=== PATIENT | female | born 1950 | race Caucasian/White ===

== ENCOUNTER → 2016-07-27 | Outpatient (CLI) | payer OTHER ==
[~2016-07-27] MED LIST: ALBU6.7H INH; ASPI1TAB69 PO; BISO10TA2 PO; CART240C4 PO; DILT240C7 PO; OXYC1TAB63 PO; ZIAC106.25 PO; ZYRT10TA12 PO
[2016-07-27 15:26] LABS: AUTOMATED NEUTROPHIL # 6.2 TH/MM3 (1.8-7.7); BASOPHIL # 0.1 TH/MM3 (0-0.2); BASOPHIL % 0.6 % (0.0-2.0); EOSINOPHIL # 0.1 TH/MM3 (0-0.4); HEMO FLAGS DIFF FINAL; LYMPH % 26.6 % (9.0-44.0); LYMPHOCYTE # 2.5 TH/MM3 (1.0-4.8); MEAN CORPUSCULAR HEMOGLOBIN 27.3 PG (27.0-34.0); MEAN CORPUSCULAR HGB CONC 32.9 % (32.0-36.0); NEUT % 65.8 % (16.0-70.0); PLATELET COUNT 276 TH/MM3 (150-450); RED BLOOD COUNT 5.05 MIL/MM3 (4.00-5.30); RED CELL DISTRIBUTION WIDTH 15.2 % (11.6-17.2); WHITE BLOOD COUNT 9.5 TH/MM3 (4.0-11.0)
[2016-07-27 15:32] LABS: BLOOD, URINE TRACE (NEG); COMMENT (UR) CULT NOT INDICATED; CULTURE IF INDICATED CULT NOT INDICATED; GLUCOSE,URINE NEG (NEG); KETONE, URINE NEG (NEG); NITRITE,URINE NEG (NEG); SQUAMOUS EPITHELIAL CELL URINE 3 /hpf (0-5); URINE COLOR YELLOW (YELLW/STRAW)
--- NOTE | 2016-07-27 15:56 | RADRPT ---
EXAM DATE/TIME: 07/27/2016 15:22 [place] COMPARISON: No previous studies available for comparison. INDICATIONS : Evaluate for pneumonia, pnuemothorax and communicable disease. Pre-op for DNC. MEDICAL HISTORY : Hypertension. Asthma. SURGICAL HISTORY : None. ENCOUNTER: Initial ACUITY: 1 day PAIN SCORE: Non-responsive. LOCATION: Bilateral chest FINDINGS: PA and lateral views of the chest demonstrate the lungs to be symmetrically aerated without evidence of mass, infiltrate or effusion. The cardiomediastinal contours are unremarkable. Mild cardiomegaly. Degenerative changes thoracic spine. CONCLUSION: 1. No acute cardiopulmonary disease. 2. Mild cardiomegaly. Yonatan Pereyra MD on July 27, 2016 at 15:54 Board Certified Radiologist. This report was verified electronically.
--- NOTE | 2016-07-28 22:28 | EKG ---
Date Performed: 07/27/2016 Time Performed: 14:46:42 PTAGE: 66 years EKG: Sinus rhythm LOW QRS VOLTAGE IN PRECORDIAL LEADS POSSIBLE RIGHT VENTRICULAR CONDUCTION DELAY Delayed R wave progr ession BORDERLINE ECG Compared to prior tracing no significant change DOCTOR: Kateryna Auguste Interpretating Date/Time 07/28/2016 22:27:32
== END ==
LOC: CPRE 14:17
PROVIDERS: ATTEND Obstetrics & Gynecology
DX: Z01.810 Encounter for preprocedural cardiovascular examination (principal); Z01.811 Encounter for preprocedural respiratory examination; Z01.812 Encounter for preprocedural laboratory examination; D39.0 Neoplasm of uncertain behavior of uterus; R94.31 Abnormal electrocardiogram [ECG] [EKG]
CPT/HCPCS: 36415; 71020; 81001; 85025; 93005

== ENCOUNTER → 2016-07-29 | Day surgery (SDC) | payer OTHER ==
--- NOTE | 2016-07-28 20:48 | MH ---
cc: DELFINA OBREGON DATE OF ADMISSION: 07/29/2016 ADMITTING DIAGNOSIS: 1. Postmenopausal bleeding. 2. Uterine fibroids. 3. Endometrial thickening, possible carcinoma. HISTORY OF PRESENT ILLNESS: The patient is a 66-year-old white female para 2-0-0-2 who returned for her annual visit on 07/15/2016 reporting slight bleeding at the end of April and May of 2016 which was essentially a pink-tinged discharge. No pain. No dysuria. Her Pap smear that day returned with atypical endometrial cells suspicious for adenocarcinoma of the endometrium. HPV was negative. Her pelvic ultrasound from 07/23/16 revealed her uterus measured 7.9 cm and there is a ventral fibroid about 12 mm. The endometrium is thickened at 12 to 14 mm. The ovaries could not be seen. She is now admitted for surgical evaluation. PAST MEDICAL HISTORY / PAST SURGICAL HISTORY: 1. Tonsillectomy and adenoidectomy in childhood. 2. Cholecystectomy. 3. D&C x2 in 2001 that were benign. 4. D&C in April of 2013 showed benign polyps. MEDICATIONS: 1.list. ALLERGIES: NONE. TRANSFUSIONS: None. OB HISTORY: Two vaginal deliveries. SOCIAL HISTORY: She is . A schoolteacher. Alcohol, tobacco and drugs: None. PHYSICAL EXAMINATION: GENERAL: This is a morbidly obese white female. WEIGHT: 279. HEIGHT: 5 feet 2. HEAD, EYES, EARS, NOSE, THROAT: Normal. CHEST: Clear. HEART: Regular rate. BREASTS: Symmetrical. ABDOMEN: Obese. PELVIC EXAM: Vagina is normal. Cervix normal. Uterus normal size and shape anterior. No adnexal masses. PLAN: She is now admitted for hysteroscopy and D&C. While in the office, I explained the procedures, the risks and the complications and she would like to proceed. I also discussed t he need for possible hysterectomy if carcinoma is found at a future time. MD LONNIE Chen/HUMBERTO /7:33 PM /8:[address] [facility] SYSTEMAshly
[~2016-07-29] VITALS: Ht 160 cm; Wt 125.5 kg
[~2016-07-29] MED LIST changes: +ACETAMINOPHEN 1000 MG/100 ML VIAL IV ONE; +ACETAMINOPHEN 1000 MG/100 ML VIAL IV SCH; -CART240C4 PO; +DEXAMETHASONE SOD PHOS 4 MG/ML VIAL ONE; +DO NOT ADM ANY ANTICOAGULANT DRUGS XX PRN; +FAMOTIDINE 20 MG/2 ML VIAL ONE; +INSULIN HUMAN REGULAR 1,000 UNITS/10 ML VIAL SQ PRN; +LACTATED RINGER'S 1000 ML IV SCH; +METOPROLOL TARTRATE 25 MG TAB PO PRN; +MIDAZOLAM HCL 2 MG/2 ML VIAL ONE; +ONDANSETRON HCL 4 MG/2 ML VIAL IV PUSH ONE; +ONDANSETRON HCL 4 MG/2 ML VIAL ONE; +PROPOFOL 200 MG/20 ML AMP IV ONE; +RESP: ALBUTEROL 2.5 MG/3 ML NEB (PRN) ONE; +SODIUM CHLORID 0.9% 500 ML IV SCH; -ZIAC106.25 PO; -ZYRT10TA12 PO; +ceFAZolin 1,000 MG/NS 100 ML IV SCH; +fentaNYL CITRATE 250 MCG/5 ML AMP ONE
[2016-07-29 05:36] VITALS: BP 187/85; PULSE 74; RESP 18; TEMP 98.1; O2SAT 97
[2016-07-29 08:50] VITALS: BP 134/84; PULSE 68; RESP 18; TEMP 97.9; O2SAT 97
--- NOTE | 2016-07-29 08:52 | MP ---
cc: DELFINA OBREGON DATE OF SURGERY 07/29/2016 PREOPERATIVE DIAGNOSES 1. Postmenopausal bleeding. 2. Uterine fibroids. 3. Possible uterine carcinoma. POSTOPERATIVE DIAGNOSES 1. Postmenopausal bleeding. 2. Uterine fibroids. 3. Possible uterine carcinoma. PROCEDURE Hysteroscopy, D&C. ANESTHESIA General ET. SURGEON Delfina Obregon MD HAT MARKER MARCELO [place] ESTIMATED BLOOD LOSS FOR THE PROCEDURE About 30 cc. FLUIDS 0.5 liter of crystalloid. OBJECTIVE FINDINGS Following the induction of adequate general endotracheal anesthesia, the patient was prepped and draped supine on the operating room table in the dorsal lithotomy position in the usual sterile fashion with the bladder being drained via in and out catheterization. The cervix was exposed with hand-held retractors secondary to her size, the anterior lip of the cervix grasped with a single-tooth tenaculum. The cervix and uterus sounded to 8 cm. The cervix was then dilated to a #18 Hanks dilator. The hysteroscope was passed, revealed normal endocervix and a very thickened endometrium. The scope was now withdrawn, the endocervix curetted with a small serrated curet, the endometrium with a small, sharp curet and polyp forceps passed to spanish moss picker loose tissue and debris. The cervical tenaculum site was sutured with 2-0 chromic, all instruments removed. All counts were correct. The patient's legs were taken down from the stirrups. She was awakened and taken to the recovery room in good condition. MD LONNIE Chen/MAU /7:27 AM /8:28 AM MTDAshly
== END | disposition home or self-care (01) ==
LOC: HSDC 05:07
PROVIDERS: ATTEND Obstetrics & Gynecology
DX: D25.9 Leiomyoma of uterus, unspecified (principal); N95.0 Postmenopausal bleeding; R93.8 Abnormal findings on diagnostic imaging of other specified body structures; I10 Essential (primary) hypertension; J45.909 Unspecified asthma, uncomplicated
CPT/HCPCS: 00952; 58558; 88305; 94664; J0131; J0690; J1100; J2250; J2405; J3010; J7120; J7613; 88341

== ENCOUNTER 2016-10-07 05:28 | Observation (INO) | payer OTHER ==
[~2016-10-07] VITALS: Ht 158.8 cm; Wt 124.3 kg
[~2016-10-07 05:28] MED LIST changes: -ACETAMINOPHEN 1000 MG/100 ML VIAL IV ONE; -ACETAMINOPHEN 1000 MG/100 ML VIAL IV SCH; -DEXAMETHASONE SOD PHOS 4 MG/ML VIAL ONE; -DO NOT ADM ANY ANTICOAGULANT DRUGS XX PRN; -FAMOTIDINE 20 MG/2 ML VIAL ONE; -INSULIN HUMAN REGULAR 1,000 UNITS/10 ML VIAL SQ PRN; -LACTATED RINGER'S 1000 ML IV SCH; -METOPROLOL TARTRATE 25 MG TAB PO PRN; -MIDAZOLAM HCL 2 MG/2 ML VIAL ONE; -ONDANSETRON HCL 4 MG/2 ML VIAL IV PUSH ONE; -ONDANSETRON HCL 4 MG/2 ML VIAL ONE; -OXYC1TAB63 PO; -PROPOFOL 200 MG/20 ML AMP IV ONE; -RESP: ALBUTEROL 2.5 MG/3 ML NEB (PRN) ONE; -SODIUM CHLORID 0.9% 500 ML IV SCH; -ceFAZolin 1,000 MG/NS 100 ML IV SCH; -fentaNYL CITRATE 250 MCG/5 ML AMP ONE
[2016-10-07] MEDS ORDERED: METOPROLOL TARTRATE 25 MG TAB PO PRN (06:00)
[2016-10-07] MEDS ORDERED: SODIUM CHLORID 0.9% 500 ML IV PRN (06:00)
[2016-10-07] MEDS ORDERED: CHLORHEXIDINE GLUCONATE 2 % 1 PACK (2 CLOTHS) TOPICAL PRN (06:00)
[2016-10-07] MEDS ORDERED: INSULIN HUMAN REGULAR 1,000 UNITS/10 ML VIAL SQ PRN (06:00)
[2016-10-07] MEDS ORDERED: HEPARIN SODIUM - SQ 10,000 UNITS/ML VIAL SQ SCH (06:00)
[2016-10-07] MEDS ORDERED: POVIDONE IODINE 5% (ANTISEPSIS KIT) 4 APPLICATIONS EACH NARE PRN (06:00)
[2016-10-07] MEDS ORDERED: LACTATED RINGER'S 1000 ML IV PRN (06:00)
[2016-10-07] MEDS ORDERED: ceFAZolin 2 GM PREMIX 50 ML IV SCH (06:00)
[2016-10-07 06:13] VITALS: BP 144/78; PULSE 67; RESP 20; TEMP 97.7; O2SAT 95
[2016-10-07] MEDS ORDERED: MIDAZOLAM HCL 2 MG/2 ML VIAL ONE ×2 (07:09→07:12)
[2016-10-07] MEDS ORDERED: ACETAMINOPHEN 1000 MG/100 ML VIAL IV ONE ×2 (07:09→07:12)
[2016-10-07] MEDS ORDERED: ARTIFICIAL TEARS OPTH OINT 3.5 APPLIC/3.5 GM TUBO ONE (07:09)
[2016-10-07] MEDS ORDERED: FAMOTIDINE 20 MG/2 ML VIAL ONE ×2 (07:10→07:12)
[2016-10-07] MEDS ORDERED: fentaNYL CITRATE 250 MCG/5 ML AMP ONE (07:10)
[2016-10-07] MEDS ORDERED: DEXAMETHASONE SOD PHOS 4 MG/ML VIAL ONE (07:12)
[2016-10-07] MEDS ORDERED: LIDOCAINE 1%/EPINEPHrine 1:100,000 SOLN 30 ML VIAL INFIL ONE (08:46)
[2016-10-07] MEDS ORDERED: METHYLENE BLUE 10 MG/ML VIAL OTHER ONE (10:07)
[2016-10-07] MEDS ORDERED: ceFAZolin INJ 1,000 MG VIAL IV ONE (10:25)
[2016-10-07] MEDS ORDERED: diphenhydrAMINE HCL 25 MG CAP PO PRN (11:15)
[2016-10-07] MEDS ORDERED: ONDANSETRON HCL 4 MG/2 ML VIAL IVP PRN (11:15)
[2016-10-07] MEDS ORDERED: SODIUM CHLORIDE 0.9% FLUSH 10 ML FLUSH IV FLUSH PRN (11:15)
[2016-10-07] MEDS ORDERED: oxyCODONE/ACETAMINOPHEN 5 MG/325 MG TAB PO PRN ×2 (11:15)
[2016-10-07] MEDS ORDERED: LORazepam 0.5 MG TAB PO PRN (11:15)
[2016-10-07] MEDS ORDERED: DO NOT ADM ANY ANTICOAGULANT DRUGS PRN (11:30)
[2016-10-07] MEDS: D5-1/2 NS + KCL 20 MEQ INJ 1,000 ML IV SCH ×2 (11:45→21:19)
[2016-10-07] MEDS: KETOROLAC TROMETHAMINE 30 MG/ML (IVP) VIAL IVP SCH ×3 (11:46→23:33)
[2016-10-07] MEDS: RESP: ALBUTEROL 2.5 MG/3 ML NEB (SCH) NEB ×2 (11:51→21:09)
[2016-10-07] MEDS ORDERED: PROPOFOL 200 MG/20 ML AMP IV ONE (13:57)
[2016-10-07] MEDS ORDERED: NEOSTIGMINE 3 MG/3 ML SYR IV ONE (13:57)
[2016-10-07] MEDS ORDERED: ePHEDrine/NS 25 MG/5 ML SYR IV ONE (13:57)
[2016-10-07] MEDS ORDERED: SODIUM CHLORID 0.9% 500 ML INJ 500 ML IV ONE (13:58)
[2016-10-07] MEDS ORDERED: ONDANSETRON HCL 4 MG/2 ML VIAL IV PUSH ONE (13:58)
[2016-10-07] MEDS ORDERED: LACTATED RINGER'S 1000 ML INJ 2,000 ML IV ONE (13:58)
[2016-10-07 14:00] VITALS: BP 137/73; PULSE 63; RESP 16; TEMP 96.1; O2SAT 97
[2016-10-07 16:00] VITALS: BP 143/72; PULSE 67; RESP 16; TEMP 96.9; O2SAT 98
[2016-10-07 20:42] VITALS: BP 145/63; PULSE 70; RESP 16; TEMP 98.1; O2SAT 97
[2016-10-07] MEDS: SODIUM CHLORIDE 0.9% FLUSH 10 ML FLUSH IV FLUSH SCH (21:00)
[2016-10-08 00:17] VITALS: BP 122/56; PULSE 73; RESP 16; TEMP 96.9; O2SAT 96
[2016-10-08] MEDS: RESP: ALBUTEROL 2.5 MG/3 ML NEB (SCH) NEB ×2 (03:26→09:23)
[2016-10-08 04:34] VITALS: BP 152/67; PULSE 74; RESP 16; TEMP 96.8; O2SAT 98
[2016-10-08] MEDS: KETOROLAC TROMETHAMINE 30 MG/ML (IVP) VIAL IVP SCH (05:43)
[2016-10-08 06:06] LABS: AUTOMATED NEUTROPHIL # 9.1 TH/MM3 (1.8-7.7); BASOPHIL % 0.2 % (0.0-2.0); HEMATOCRIT 37.8 % (35.0-46.0); HEMO FLAGS DIFF FINAL; MEAN CELL VOLUME 84.3 FL (80.0-100.0); MEAN CORPUSCULAR HEMOGLOBIN 28.1 PG (27.0-34.0); MEAN CORPUSCULAR HGB CONC 33.3 % (32.0-36.0); MONO % 5.9 % (0.0-8.0); NEUT % 76.9 % (16.0-70.0); PLATELET COUNT 235 TH/MM3 (150-450); RED BLOOD COUNT 4.48 MIL/MM3 (4.00-5.30); RED CELL DISTRIBUTION WIDTH 15.3 % (11.6-17.2); WHITE BLOOD COUNT 11.8 TH/MM3 (4.0-11.0)
[2016-10-08 06:28] LABS: POTASSIUM 3.5 MEQ/L (3.5-5.1)
[2016-10-08] MEDS: D5-1/2 NS + KCL 20 MEQ INJ 1,000 ML IV SCH (07:03)
[2016-10-08 08:00] VITALS: BP 152/72; PULSE 71; RESP 20; TEMP 95.6; O2SAT 100
[2016-10-08] MEDS: SODIUM CHLORIDE 0.9% FLUSH 10 ML FLUSH IV FLUSH SCH (08:20)
[2016-10-08] MEDS ORDERED: OXYC1TAB63 PO (08:35)
[2016-10-08] MEDS ORDERED: BISOPROLOL PO SCH (09:00)
[2016-10-08] MEDS ORDERED: HCTZ PO SCH (09:00)
[2016-10-08] MEDS ORDERED: DILTIAZEM-CD 240 MG CAP ER PO SCH (09:00)
--- NOTE | 2016-10-09 17:29 | MD ---
cc: DELFINA OBREGON,VANESSA CARRIZALES,AUDREY HEARD,KELLEN Berger MD ADMISSION DATE: 10/07/2016 DISCHARGE DATE: 10/08/2016 PROCEDURE: 10/07/2016 robotic-assisted laparoscopic hysterectomy, bilateral salpingo-oophorectomy, lysis of adhesions. DIAGNOSIS: Endometrial cancer. HOSPITAL COURSE: She did well during the first 24 hours after surgery. OBJECTIVE: Labs on postop day one: Hemoglobin and hematocrit were 12.6 and 37.8, white count 11.8, platelets 235,000. Electrolytes essentially normal: Potassium 3.5, creatinine 0.68. Ins and outs 4349 / 4450. PHYSICAL EXAMINATION: VITAL SIGNS: Afebrile, pulse 67-74, respirations 16-18, blood pressure 122-152 / 56-72, O2 saturations greater than or equal to 97% while awake. GENERAL: Alert and oriented x3 in no acute distress. LUNGS: Clear except for mild basilar rales CARDIOVASCULAR: Regular rate and rhythm. ABDOMEN: Soft. Incisions clean and dry. CHAIR TRIMMER: No bleeding. EXTREMITIES: Nontender. ASSESSMENT: Postop day #1. Findings at the time of surgery: Preliminary pathology reviewed. Activity restrictions discussed. She has discussed that she is tolerating oral intake. Ansari catheter is removed pending voiding. She is reasonably comfortable and is hemodynamically stable. PLAN: Therefore I anticipate discharge to home. Our office number was again made available. She is to contact our office to schedule follow up in two weeks. She is to resume prior medications. A prescription for Percocet was provided. She is to contact our office should there be any questions or problems between now and the time of scheduled followup. MD NAHID Paris/HUMBERTO /8:40 AM /5:25 PM
--- NOTE | 2016-10-11 08:08 | MP ---
cc: DELFINA OBREGON KELLY L. MD OWNBY, THOMAS MD DATE OF SURGERY 10/07/2016 PREOPERATIVE DIAGNOSES 1. Postmenopausal bleeding. 2. 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 POSTOPERATIVE DIAGNOSES 1. Postmenopausal bleeding. 2. 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 PROCEDURE Robotic-assisted laparoscopic hysterectomy, bilateral salpingo-oophorectomy, lysis of adhesions. SURGEON Jailyn Benitez MD [employer] [place] it administrative assistant. ANESTHESIA General endotracheal anesthesia. ESTIMATED BLOOD LOSS 100 cc. IV FLUIDS 2000 cc. URINE OUTPUT 400 cc. HISTORY A 66-year-old female with postmenopausal bleeding, thickened endometrial stripe. Biopsy showed high-grade endometrial cancer with features suggestive of possible papillary serous adenocarcinoma. Imaging showed no overt evidence of metastatic disease. She was counseled regarding these findings and presents now for surgical management. She is seen again in the preop holding area where we again discussed the surgical plan. It was agreed that any area that appeared suspicious would be biopsied, any enlarged lymph nodes would be removed but if there was no overt evidence of metastatic disease, we would be selective in biopsies in an effort to try to minimize perioperative morbidity from lymph node dissection, also taking into account the histology of uterine papillary serous carcinoma which we may consider and recommend postoperative treatment. FINDINGS The uterus was prominent, sounded to approximately 8-9 cm. The tubes and ovaries grossly appeared normal. There were no peritoneal implants. The liver and diaphragm edges were smooth. The omentum grossly appeared normal. Large and small bowel and adjacent mesentery appeared normal. No implants. Opening up the pelvic sidewall spaces there were no appreciably enlarged lymph nodes. Visible and palpable inspection of the para-aortic and pericaval region revealed no overtly enlarged lymph nodes. The uterus once removed showed a 2 cm polypoid tumor that was extending into the endometrial cavity. There was no overt evidence of myometrial invasion. There was no endocervical extension. MODIFIER The complexly of this case was increased due to intraperitoneal adhesions as well as body habitus 123 kg. Modifier should be applied accordingly. PROCEDURE The patient was taken to the operating room, placed in dorsal lithotomy position. After general endotracheal anesthesia was administered time-out was undertaken. The patient was identified by sight recognition and hospital ID bracelet and the proposed procedure was reviewed and confirmed. She was carefully positioned in padded Elio stirrups. Her arms were padded and secured to the sides. She was further secured to the operating table with eggcrate padding and tape in across-chest, [id number] fashion. All sites were noted be properly aligned with no malalignments or pressure points. She was prepped in sterile fashion, draped below the waist, placed in high lithotomy position. The cervix was grasped, uterine cavity sounded, cervix dilated and a large V-Care manipulator was inserted and secured in the usual fashion. Ansari catheter was placed in the bladder. She was returned to low lithotomy position. We completed draping in anticipation of laparoscopy. Confirmed that an orogastric tube was in the stomach on suction and with manual elevation of the abdominal wall and direct laparoscopic visualization, a 5-mm cannula was introduced into the left upper quadrant and atraumatic entry was confirmed. Carbon dioxide gas was insufflated. Adhesions were noted. She had a prior open cholecystectomy and the omentum was adherent to the anterior abdominal wall in the midline in the right upper quadrant. There were also some bands of adhesions between the omentum and the mid-lower abdominal wall. An 8-mm cannula was introduced in the left lateral upper quadrant and blunt and sharp dissection were used to take down these adhesions to free the abdominal wall in the mid and right upper quadrant regions to provide area for safe access into these regions. A 12-mm cannula now was placed in the midline above the umbilicus and an 8-mm cannula placed in the right upper quadrant. The original 5 was exchanged for an 8-mm cannula. She was placed in steep Trendelenburg position. Additional dissection was carried out to lyse adhesions. Peritoneal washings were obtained for cytology. The anatomy was explored with findings as described above. Three Ray-Vera sponges were placed around the root of the small bowel mesentery as the bowel was folded back on its mesenteric root. The robotic system was brought into the operative field, attached in the usual fashion. Monopolar scissors, fenestrated bipolar forceps and ProGrasp manipulators were placed in arms #1, 2 and 3 respectively and I took my place at the surgeon's console. The right round ligament was isolated, cauterized, transected. The anterior and posterior leaves of the broad ligament were opened. The right ureter was identified. The right infundibulopelvic ligament was isolated. The intervening peritoneum was opened. The infundibulopelvic ligament was dissected to the level of the pelvic brim where it was cauterized and transected. Posterior peritoneum was opened along the right side of the uterus and cervix and the right vesicouterine peritoneum was dissected off the lower uterine segment and cervix. The right uterine vessels were skeletonized, cauterized and transected as were the cardinal, paracervical and uterosacral ligaments. Attention was directed toward the left side. Additional lysis of adhesions was carried out to mobilize the bowel and free adhesions between the bowel and the left pelvic sidewall and to open the posterior cul-de-sac. The left round ligament was isolated, cauterized and transected. The anterior and posterior leaves of the broad ligament were opened. Left ureter was identified. The left infundibulopelvic ligament was isolated. The intervening peritoneum was opened. The infundibulopelvic ligament was isolated to the level of the pelvic brim where it was cauterized and transected. The posterior peritoneum was opened along the left side of the uterus and cervix and the left vesicouterine peritoneum dissected off the lower uterine segment and cervix. Left uterine vessels were skeletonized, cauterized and transected as were the cardinal, paracervical and uterosacral ligaments. Colpotomy was performed the cervix from the upper vagina. The specimen was withdrawn transvaginally which included uterus, cervix, tubes and ovaries and a pneumooccluder balloon was placed in the vagina to maintain pneumoperitoneum. Instruments 1 and 3 were exchanged for needle drivers as a 0 Vicryl suture was introduced. The vaginal cuff was closed with 0 Vicryl starting at the left corner, full-thickness closure including the edge of the posterior uterosacral ligament and posterior peritoneum, tied via instrument tie. The closure was held on counter traction as a running full-thickness continuous closure was carried across the vaginal apex to the contralateral corner where it was similarly fixed, secured and tied. The needle was cut and removed. The pelvis was thoroughly irrigated. The integrity of the bladder was confirmed by filling the bladder with saline dyed with methylene blue. The bladder distended nicely under pressure. No areas of blue to suggest thinning, no extravasation of dye and a good margin between the bladder edge and the vaginal cuff suture line and good peristalsis of ureters bilaterally. Paravesical and pararectal spaces were opened in the pelvis bilaterally. Visual and manual inspection were used and, as noted above, there were no enlarged lymph nodes, no suspicious findings in the pelvis. Similarly, visual and manual inspection were used overlying the aorta following above the bifurcation and follow along the common iliacs bilaterally overlying the vena cava. There were no visibly or palpably enlarged lymph nodes. Frozen section came back showing a noninvasive 2 cm tumor, taking all things into account, it was felt that all reasonable surgical objectives had been completed in this patient and that further dissection may be associated with morbidity that exceeded benefit. Accordingly, the robotic instruments were removed. The robotic system was disengaged from the operative field. I reentered the bedside under sterile conditions. Each of the three Ray-Vera sponges that had been placed in the peritoneal cavity were withdrawn to the 12-mm cannula. Each were inspected and noted to be removed in their entirety. The 12-mm defect was now closed with interrupted 0 Vicryl sutures using a needle pass apparatus tied securely. The fascia was completely airtight and hemostatic. The remaining cannulas were withdrawn. Carbon dioxide gas was removed from the peritoneal cavity. 3-0 Vicryl subcutaneous, 3-0 Vicryl subcuticular and Steri-Strips were used to close the incisions. She was returned to dorsal lithotomy position. Inspection confirmed the vaginal cuff was well-supported, the suture line intact and hemostatic, no vaginal lacerations, no remaining foreign objects in the vagina. Final counts were correct. She was returned to dorsal supine position and was pending reversal of anesthesia when I left the operating room to precede her to the Post-Anesthesia Care Unit. MD NAHID Paris/MAU /6:43 AM /7:50 AM
== END 2016-10-08 11:24 | disposition home or self-care (01) ==
LOC: HSDC 05:28 → HSDI 11:05 → HOCB 14:10
PROVIDERS: ADMIT Obstetrics & Gynecology Gynecologic Oncology; ATTEND Obstetrics & Gynecology Gynecologic Oncology
DX: C54.1 Malignant neoplasm of endometrium (principal); D25.1 Intramural leiomyoma of uterus; N88.8 Other specified noninflammatory disorders of cervix uteri; N95.0 Postmenopausal bleeding; J45.909 Unspecified asthma, uncomplicated
CPT/HCPCS: 00840; 58552; 80048; 85025; 86850; 86900; 86901; 88309; 88331; 94150; 94640; 94664; G0378; J0131; J0690; J1100; J1644; J1885; J2250; J2405; J2710; J3010; J3480; J7040; J7120; J7613; 88307; 88341